=== PATIENT | female | born 1995 | race Caucasian/White ===

== ENCOUNTER 2020-03-10 12:14 | Emergency (ER) | payer MEDICAID, SELFPAY ==
[2020-03-10 12:34] VITALS: BP 136/94; PULSE 112; RESP 18; TEMP 36.7; O2SAT 99; BMI 18.8
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
[2020-03-10 13:42] VITALS: BP 136/94; PULSE 112; RESP 18; TEMP 36.7; O2SAT 99
== END 2020-03-10 13:43 | disposition home or self-care (01) ==
PROVIDERS: Emergency Provider Nurse Practitioner; PCP Pediatrics
DX: S41.112A Laceration without foreign body of left upper arm, initial encounter (principal); W26.8XXA Contact with other sharp object(s), not elsewhere classified, initial encounter; Y92.73 Farm field as the place of occurrence of the external cause; Z23 Encounter for immunization; F17.210 Nicotine dependence, cigarettes, uncomplicated
CPT/HCPCS: 12002; 90471; 90715; 99201

== ENCOUNTER 2020-11-10 19:59 | Emergency (ER) | payer MEDICAID, SELFPAY ==
[2020-11-10 20:00] VITALS: BP 137/95; PULSE 89; RESP 16; TEMP 37.4; O2SAT 95; BMI 21.7
[2020-11-10 20:23] LABS: Microscopic, Urine URINE MICROSCOPIC (MICROSCOPIC)
[2020-11-10 20:28] LABS: Urine Pregnancy, HCG Qual. Positive (Negative)
--- NOTE | 2020-11-10 20:29 | HMH.EDNVD ---
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 The time I documented below is in addition to time spent performing reported procedures but includes the following listed in this critical care notation. Medical Decision Making - Medical Records Medical records reviewed: Yes: I reviewed the patient's medical records. - Bharathi Inquiry Pt receiving controlled substance: No Vital Signs: 11/10/20 20:00 11/10/20 21:06 11/10/20 22:08 Temperature 99.3 F Temperature Source Oral Pulse Rate 79 80 Pulse Rate [Right] 89 Respiratory Rate 16 Blood Pressure 113/76 131/86 Blood Pressure [Right Arm] 137/95 H Blood Pressure Mean [Right Arm] 109 02 Sat by Pulse Oximetry 95 98 98 - Lab Data Lab results reviewed: Yes: I reviewed the patient's lab results. Lab Results 11/10/20 20:06: Urine Color Yellow, Urine Appearance Clear, Urine pH 6.0, Ur Specific Clutier >= 1.030, Urine Protein Negative, Urine Glucose (UA) Negative, Urine Ketones Negative, Urine Blood Negative, Urine Nitrate Negative, Urine Bilirubin Negative, Urine Urobilinogen 0.2, Ur Leukocyte Esterase Negative, Urine RBC None, Urine WBC Occasional, Ur Squamous Epith Cells 3-5, Urine Bacteria Trace 11/10/20 20:06: Urine HCG, Qual Positive 11/10/20 20:25: WBC 7.5, RBC 4.93, Hgb 15.1, Hct 43.6, MCV 88.4, MCH 30.6, MCHC 34.6, RDW 12.9, Plt Count 306, MPV 7.2 L, Neut % (Auto) 58.6, Lymph % (Auto) 33.5, Alger % (Auto) 6.2, Eos % (Auto) 0.8, Baso % (Auto) 0.9, Neut # (Auto) 4.4, Lymph # (Auto) 2.5, Alger # (Auto) 0.5, Eos # (Auto) 0.1, Baso # (Auto) 0.1, ESR 17 11/10/20 20:25: Sodium 139, Potassium 3.8, Chloride 104, Carbon Dioxide 25, Anion Gap 13.8, BUN 10, Creatinine 0.60, Estimated Creat Clear 119, Estimated GFR 123, Est GFR ( Amer) 149, Glucose 66 L, Calcium 9.6, Total Bilirubin 0.5, AST 28, ALT 15, Alkaline Phosphatase 48, C-Reactive Protein 1.1, Total Protein 8.2, Albumin 4.9, Globulin 3.3 H, Albumin/Globulin Ratio 1.5, Amylase 88, Lipase 112, Procalcitonin 0.034 11/10/20 20:25: HCG, Quant 4264 H Result diagrams: 11/10/20 20:25 11/10/20 20:25 Orders (Tests/Meds): ORDERS Category Date Time Status US OB transvaginal Stat Ultrasound 11/10/20 20:35 Taken - US Data US Images: Pelvis ED US Reviewed: Yes: I discussed the US results w/the radiologist Findings Narrative: no def gest sac Medical Decision Narrative: pt has positive preg test and pelvic u/s which showed no def iup - pt left ed with notify staff Nausea/Vomiting/Diarrhea HPI - General Chief complaint: Abdominal Pain Stated complaint: stomach pains positive home test Time Seen by Provider: 11/10/20 20:29 Mode of Arrival: Ambulatory Source of Information: Patient, Relative, Medical Record Limitations: No Limitations Description of Symptoms (Recalled from ER Triage Doc. by RN): pt c/o lower abd pain and tenderness x 3 days. this morning took a home pregnacy test and was positive - History of Present Illness HPI Narrative: lower abd pain over the last few days with positive preg test this am- no fever or vag bleeding MD complaint: abdominal pain Onset (ago): day(s) Associated Abdominal Pain: Yes Location of pain: periumbilical Severity: moderate Consistency: intermittent Associated symptoms: denies other symptoms - R
[2020-11-10 20:34] LABS: Appearance,Urine CLEAR (Clear); Bilirubin,Urine Negative (Negative); Blood, Urine Negative (Negative); Color,Urine YELLOW (Yellow); Glucose,Urine (UA) Negative (Negative); Ketones,Urine Negative (Negative); Leukocyte Esterase,Urine Negative (Negative); Nitrate,Urine Negative (Negative); Protein,Urine Negative (Negative); Specific Gravity, Urine >= 1.030 (1.005-1.030); Urobilinogen,Urine 0.2 EU/dl (0.2); WBC,Urine Occasional #/hpf (0-3)
[2020-11-10 20:34] LABS: Basophils # 0.1 K/mm3 (0-0.2); Basophils % 0.9 % (0.1-2.0); Eosinophils # 0.1 K/mm3 (0.0-0.4); Eosinophils % 0.8 % (0.1-12.0); Hematocrit 43.6 % (37.0-47.0); Hemoglobin 15.1 g/dL (12.2-16.2); Lymphocytes # 2.5 K/mm3 (0.7-4.5); Lymphocytes % 33.5 % (10-50); Mean Corpuscular HGB Conc 34.6 g/dL (31.8-35.4); Mean Corpuscular Hemoglobin 30.6 pg (27.0-31.2); Mean Corpuscular Volume 88.4 fl (81-99); Mean Platelet Volume 7.2 fl (7.4-10.4); Monocytes # 0.5 K/mm3 (0.1-1.0); Monocytes % 6.2 % (1.7-9.3); Neutrophils # 4.4 K/mm3 (1.8-7.8); Neutrophils % 58.6 % (37.0-80.0); Platelet Count 306 K/mm3 (142-424); Red Blood Count 4.93 M/mm3 (4.20-5.40); Red Cell Distribution Width 12.9 % (11.5-17.5); White Blood Count 7.5 K/mm3 (4.8-10.8)
[2020-11-10 20:35] LABS: Bacteria,Urine Trace /lpf
--- NOTE | 2020-11-10 20:35 | US_ITS ---
PROCEDURE INFORMATION: Exam: US , Transvaginal Exam date and time: 11/10/2020 9:37 PM Age: 25 years old Clinical indication: complicated by abdominal or pelvic pain; Other: Bilateral low pelvis pain; Gestational age or lmp: 5 weeks; ; Patient HX: Positive preg test. Beta hcg is 4264. Low pelvis pain no bleeding TECHNIQUE: Imaging protocol: Real-time transvaginal obstetrical ultrasound of the maternal pelvis with image documentation. Transvaginal imaging was used for better evaluation of the fetus, adnexa, and/or cervix. COMPARISON: US OB TRANSVAGINAL 11/10/2020 9:30 PM FINDINGS: Gestation: No gestational sac identified. MATERNAL: Uterus: The uterus measures 7.7 x 4.2 x 6.6 cm and has relatively homogeneous echotexture. The endometrium measures 1.8 cm. Cervix: The cervix is closed. Right adnexa: The right ovary measures 2.3 x 1.5 x 1.7 cm and demonstrates normal Doppler color flow and spectral analysis. There is a thick-walled 2.3 x 1.5 cm hypoechoic cyst within the right ovary. Left adnexa: The left ovary measures 2.3 x 1.2 x 1.8 cm and demonstrates normal Doppler color flow and spectral analysis. There are small follicles in the left ovary. IMPRESSION: 1. No sonographic evidence of a viable intrauterine . Therefore an ectopic is not excluded. Clinical correlation and follow-up with serial beta HCG levels advised. 2. Hypoechoic thick-walled right ovarian cyst. 3. No ovarian torsion.
[2020-11-10 20:44] LABS: Alanine Aminotransferase 15 U/L (12-78); Albumin Level 4.9 g/dl (3.5-5.0); Albumin/Globulin Ratio 1.5 (1.1-1.8); Alkaline Phosphatase 48 U/L (38-126); Amylase 88 U/L (30-110); Anion Gap 13.8 mEq/L (5-15); Aspartate Amino Transferase 28 U/L (14-36); Bilirubin,Total 0.5 mg/dl (0.2-1.3); Blood Urea Nitrogen 10 mg/dl (7-17); Calcium 9.6 mg/dl (8.4-10.2); Carbon Dioxide 25 mmol/L (22.0-30.0); Chloride 104 mmol/L (98-107); Creatinine Clearance Estimated 119 mL/min (50-200); Estimated Glomerular Filt Rate 123 ml/min (>60); GFR (African American) 149 ML/MIN (>60); Globulin 3.3 g/dL (1.3-3.2); Glucose 66 mg/dl (74-100); Lipase 112 U/L (23-300); Potassium 3.8 mmoL/L (3.5-5.1); Sodium 139 mmol/L (136-145); Total Protein,Serum 8.2 g/dl (6.3-8.2)
[2020-11-10 20:51] LABS: C-Reactive Protein 1.1 mg/L (0-4)
[2020-11-10 21:04] LABS: HCG,Quantitative 4264 mIU/ml (0-5.42); Procalcitonin 0.034 ng/mL (0.0-2.0)
[2020-11-10 21:05] LABS: Erythrocyte Sedimentation Rate 17 mm/hr (0-20)
[2020-11-10 21:06] VITALS: BP 113/76; PULSE 79; O2SAT 98
--- NOTE | 2020-11-10 21:29 | PC.NURSE ---
pt gone to radiology.
--- NOTE | 2020-11-10 22:02 | PC.NURSE ---
pt back in room from radiology.
[2020-11-10 22:08] VITALS: BP 131/86; PULSE 80; O2SAT 98
[2020-11-10 22:56] VITALS: BP 131/91; PULSE 89; O2SAT 99
--- NOTE | 2020-11-10 23:13 | PC.NURSE ---
This RN noticed pt walking to exit with visitor. When this RN asked if pt had been d/c the MD stated she was not yet. Staff attempted to find pt in parking lot and attempted to call pt on listed cell phone number with no success. Dispatch was notified d/t pt leaving with IV access.
--- NOTE | 2020-11-10 23:18 | PC.NURSE ---
IV had been removed by another RN prior to pt leaving without informing staff. Dispatch contacted and made aware.
[2020-11-10 23:20] VITALS: BP 131/91; PULSE 88; RESP 16; TEMP 37.4; O2SAT 99
--- NOTE | 2020-11-11 06:39 | PC.NURSE ---
This RN spoke with Pt over the phone at 0635 about needing to schedule appointment with OBGYN in regards to US reading to rule out ectopic . This RN explained risks of having ectopic . Pt verbalized understanding and states she will contact her obgyn she used when she had her son.
== END 2020-11-10 23:22 | disposition left against medical advice (07) ==
PROVIDERS: Emergency Provider Emergency Medicine; PCP Pediatrics
DX: R10.30 Lower abdominal pain, unspecified (principal); Z3A.01 Less than 8 weeks gestation of pregnancy; F17.210 Nicotine dependence, cigarettes, uncomplicated
CPT/HCPCS: 76817; 80053; 81001; 81025; 82150; 83690; 84145; 84702; 85025; 85651; 86140; 99283

== ENCOUNTER 2023-06-23 14:57 | Emergency (ER) | payer MEDICAID, SELFPAY ==
[2023-06-23 15:00] VITALS: BP 160/106; PULSE 108; RESP 22; TEMP 36.8; O2SAT 98; BMI 18.8
--- NOTE | 2023-06-23 15:14 | EXP.UTC ---
Discharge Plan Disposition Patient Disposition: Still a Patient Condition: Good Prescriptions Prescriptions: No Action nifedipine 30 mg tablet extended release 24hr 30 mg PO DAILY buspirone 10 mg tablet 10 mg PO DAILY Patient Comments: TAKE 1 TABLET BY MOUTH TWICE A DAY hydroxyzine pamoate 25 mg capsule 25 mg PO DAILY Vitamin 27 mg iron- 800 mcg tablet 1 tab PO DAILY Referrals Follow up/Referrals: Provider,Referral, [Primary Care Provider] - See instructions Discharge ED Provider: Carolyn Dong [facility] [place] HPI General Stated complaint: spotting 6 weeks preg Mode of Arrival: Ambulatory Source of Information: Patient Limitations: No Limitations Time Seen by Provider: 06/23/23 15:14 Description of Symptoms (Recalled from Triage Doc. by RN): PATIENT REPORTS A POSITIVE URINE TEST LAST SUNDAY. SHE STATES THAT APPROX 2 HOURS TOP ICER SHE STARTED HAVING CRAMPING AND SPOTTING. SHE STATES SHE BELIEVES SHE IS APPROX 6 WEEKS . SHE HAS NOT HAD AN INITIAL OB APPOINTMENT SINCE POSITIVE TEST HEENT Symptoms (Recalled from RN notes): No Resp Symptoms (Recalled from RN notes): No Skin Symptoms (Recalled from RN notes): No MS Symptoms (Recalled from RN notes): No Functional Status (Recalled from RN notes): WNL History of Present Illness Provider Complaint: Patient states that she had a positive home test last week and hasnt seen OBGYN yet figures that she is about 6wks OB states that about 2hrs ago she started cramping and went to the bathroom and noticed she had some blood on the tissue Stats that she has anxiety, hx of preeclampsia and high blood pressure States that she called the OBGYN human resources operations director in [place] and they told her that she needed to come in and get checked so she came to the [facility] Related Data Home Medications Medication Instructions Recorded Confirmed buspirone 10 mg tablet 10 mg PO DAILY 06/23/23 06/23/23 hydroxyzine pamoate 25 mg capsule 25 mg PO DAILY 06/23/23 06/23/23 nifedipine 30 mg tablet,extended 30 mg PO DAILY 06/23/23 06/23/23 release 24 hr vits no.130-ferrous fum 1 tab PO DAILY 06/23/23 06/23/23 27 mg iron-folic acid 800 mcg tablet ( Vitamin) Allergies Allergy/AdvReac Type Severity Reaction Status Date / Time No Known Allergies Allergy Verified 06/23/23 15:09 Worker's Comp Is this a Worker's Comp case?: No [facility] Disclaimer: The information contained in this section may have been updated after the patient was seen, as this information can be updated by other users. Social History Smoking Status: Current every day smoker tobacco type: cigarettes packs per day: 1 second hand exposure: Yes alcohol intake: never current occupational status: unemployed Travel in the last 8 weeks: None ROS Obtained: Yes All systems reviewed & no additional complaints except as documented and Yes Systems reviewed as appropriate & no additional complaints except as documented ENT Ears, Nose, Mouth, and Throat: Reports system reviewed and no additional complaints, except as documented and Reports as per HPI Cardiovascular Cardiovascular: Reports system reviewed and no additional complaints, except as documented and Reports as per HPI Respiratory Respiratory: Reports system reviewed and no additional complaints, except as documented and Reports as per HPI Gastrointestinal Gastrointestingal: Reports system reviewed and no additional complaints, except as documented, as per HPI and cramping Genitourinary Female Genitourinary: Reports system reviewed and no additional complaints, except as documented, Reports as per HPI and Reports other (spotting with + urine ) Physical Exam General General appearance: alert and in no apparent distress Respiratory Respiratory exam: Present normal lung sounds bilaterally; Absent respiratory distress or wheezes Cardiovascular Cardiovascular exam: Present regular rate, normal rhythm and tachycardia Neurological Exam Neurological exam: Present alert and oriented X3 Medical Decision Making Bharathi Inquiry Pt receiving controlled substance: No Bharathi was queried for this patient: No Vital Signs: 06/23/23 15:00 Temperature 98.3 F Temperature Source Oral Pulse Rate [Left Brachial] 108 H Respiratory Rate 22 Blood Pressure [Left Arm] 160/106 H Blood Pressure Mean [Left Arm] 124 Blood Pressure Source [Left Arm] Automatic Cuff Blood Pressure Position [Left Arm] Sitting 02 Sat by Pulse Oximetry 98 Oxygen Delivery Method Room Air Lab Data Lab results reviewed: Yes I reviewed the patient's lab results. Medical Decision Narrative: Discussed with patient that due to positive urine test with spotting and cramping and elevated BP, it was recommended that she be transferred to the ED for further evaluation and testing and patient agreed Called ED and patient was moved to the ED for further evaluation and treatment
[2023-06-23 15:18] LABS: Apearance,Urine Clear (Clear); Bilirubin,Urine Negative (Negative); Blood, Urine 3+ (Negative); Color,Urine Yellow (Yellow); Glucose,Urine (UA) Negative (Negative); Ketones,Urine Negative (Negative); Protein,Urine Negative (Negative); UTC Leukocyte Esterase,Urine Negative (Negative); UTC Nitrate,Urine Negative (Negative); Urobilinogen,Urine 0.2 EU/dl (0.2)
[2023-06-23 15:18] LABS: UTC Pregnancy Test, Urine Positive (Negative)
--- NOTE | 2023-06-23 15:22 | PC.NURSE ---
PATIENT SENT TO ER PER Yifan LAMAR APRN FOR FURTHER EVALUATION. REPORT GIVEN TO DR. BRAVO BY Yifan LAMAR APRN. PATIENT AMBULATED TO ER WITH [facility] STAFF. FAMILY AT BEDSIDE
[2023-06-23 15:28] VITALS: BP 154/91; PULSE 90; RESP 20; TEMP 36.9; O2SAT 99; BMI 18.4
--- NOTE | 2023-06-23 15:31 | US_ITS ---
PROCEDURE INFORMATION: Exam: US Pelvis, Transvaginal Exam date and time: 06/23/2023 4:13 PM Age: 28 years old Clinical indication: Other: Vaginal bleeding; Additional info: vaginal bleeding TECHNIQUE: Imaging protocol: Real-time transvaginal pelvic ultrasound with image documentation. Transvaginal imaging was used for better evaluation of the endometrium, adnexa, and/or cervix. COMPARISON: US OB TRANSVAGINAL 11/10/2020 9:37 PM FINDINGS: Uterus: Uterus is normal. Endometrial stripe is normal. Right ovary/adnexa: Right ovary normal size measuring 2.1 x 1.1 x 0.9 cm with blood flow noted. Right ovary contains a cyst measuring 1.1 cm. Left ovary/adnexa: Left ovary measures 2.4 x 1.8 x 1.6 cm with blood flow. Left ovary contains a thick-walled lesion with a internal 8 mm cystic component with a eccentric solid-appearing component along the posterior portion of the cystic portion. Prominent peripheral blood flow around this lesion noted. Gestation: Evidence for a intrauterine gestational sac with possible yolk sac present. No pole or heart activity identified. Mean sac diameter 0.81 cm corresponding to ultrasound age of 5 weeks 3 days. Intraperitoneal space: No free fluid. Other findings: Complex hypoechoic material anterior to the gestational sac measuring 2.4 x 0.3 x 2.2 cm compatible with subchorionic hemorrhage. IMPRESSION: 1. Evidence for IUP with ultrasound age based on mean sac diameter 5 weeks and 3 days with corresponding BLESSING 02/20/2024. Size and dates are not concordant. Live IUP can not be confirmed at this time. 2. Associated moderate to large size subchorionic hemorrhage. 3. Complex 16 mm cystic lesion in the left ovary with a 8 mm central component that also demonstrates internal solid component in pronounced peripheral blood flow. A complex corpus luteum cyst is favored.. The remote possibility this might reflect a coexistent ectopic associated with the intrauterine while thought unlikely not entirely excluded. For this reason consider correlation with serial hCGs and short-term follow-up ultrasound in roughly 2-3 weeks to reassess this area to assess for improvement or progression.
[2023-06-23 15:40] LABS: Chloride 104 mmol/L (98-107)
[2023-06-23 15:41] LABS: Potassium 3.3 mmoL/L (3.5-5.1); Sodium 138 mmol/L (136-145)
[2023-06-23 15:42] LABS: Basophils % 0.7 % (0.1-2.0); Eosinophils % 0.5 % (0.1-12.0); Hematocrit 43.8 % (37.0-47.0); Hemoglobin 15.5 g/dL (12.2-16.2); Lymphocytes # 2.1 K/mm3 (0.7-4.5); Lymphocytes % 32.6 % (10-50); Mean Corpuscular HGB Conc 35.5 g/dL (31.8-35.4); Mean Corpuscular Hemoglobin 31.4 pg (27.0-31.2); Mean Corpuscular Volume 88.4 fl (81-99); Mean Platelet Volume 7.9 fl (7.4-10.4); Monocytes # 0.4 K/mm3 (0.1-1.0); Neutrophils # 3.7 K/mm3 (1.8-7.8); Neutrophils % 59.2 % (37.0-80.0); Platelet Count 284 K/mm3 (142-424); Red Blood Count 4.95 M/mm3 (4.20-5.40); Red Cell Distribution Width 13.3 % (11.5-17.5); White Blood Count 6.3 K/mm3 (4.8-10.8)
[2023-06-23 15:43] LABS: Alanine Aminotransferase 29 U/L (12-78); Albumin Level 4.9 g/dl (3.5-5.0); Alkaline Phosphatase 40 U/L (38-126); Aspartate Amino Transferase 37 U/L (14-36); Blood Urea Nitrogen 10 mg/dl (7-17); Creatinine Clearance Estimated 109 mL/min (50-200); Estimated Glomerular Filt Rate 120 ml/min (>60); GFR (African American) 145 ML/MIN (>60)
[2023-06-23 15:44] LABS: Albumin/Globulin Ratio 1.4 (1.1-1.8); Anion Gap 12.3 mEq/L (5-15); Calcium 9.3 mg/dl (8.4-10.2); Carbon Dioxide 25 mmol/L (22.0-30.0); Globulin 3.5 g/dL (1.3-3.2); Glucose 95 mg/dl (74-100); Total Protein,Serum 8.4 g/dl (6.3-8.2)
[2023-06-23 15:46] VITALS: BP 155/102; PULSE 100; O2SAT 98
[2023-06-23 16:00] VITALS: BP 152/100; PULSE 104; O2SAT 97
[2023-06-23 16:01] LABS: HCG,Quantitative 11850 mIU/ml (0-5.42)
--- NOTE | 2023-06-23 16:02 | PC.NURSE ---
PT IS CHANGING INTO [facility] FOR TRANSVAGINAL ULTRASOUND
--- NOTE | 2023-06-23 16:05 | HMH.EDGENADL ---
Discharge Plan Disposition Patient Disposition: Home, Self-Care Condition: Good Prescriptions Prescriptions: No Action nifedipine 30 mg tablet extended release 24hr 30 mg PO DAILY buspirone 10 mg tablet 10 mg PO DAILY Patient Comments: TAKE 1 TABLET BY MOUTH TWICE A DAY hydroxyzine pamoate 25 mg capsule 25 mg PO DAILY Vitamin 27 mg iron- 800 mcg tablet 1 tab PO DAILY Referrals Follow up/Referrals: Provider,Referral, MD [Primary Care Provider] - See instructions Activity Restrictions/Add. Instructions Additional Instructions/Restrictions: Call your family doctor to establish care for this visit to the emergency department and schedule follow-up within 48 hours to ensure improvement. If you have any worsening of your condition or any other concerning signs or symptoms, return to the emergency department or your primary care doctor for further evaluation. Clinical Impressions Clinical Impression: Vaginal bleeding affecting early Discharge ED Provider: Wilfrid Gonzalez General Adult HPI General Chief complaint: Vaginal Bleeding Stated complaint: spotting 6 weeks preg Time Seen by Provider: 06/23/23 15:14 Mode of Arrival: Ambulatory Limitations: No Limitations Description of Symptoms (Recalled from ER Triage Doc. by RN): cramping and spotting. thinks shes 6 weeks . history of preeclampsia postpartumx2 History of Present Illness HPI narrative: 28-year-old female approximately 6 weeks G4, P2 presenting with abdominal cramping, vaginal bleeding, hypertension. Patient states that she has anxiety when coming to the emergency department or hospital, so her blood pressure and heart rate are up because of that. She states that before she came to the emergency department, her blood pressure was 120/60 and was totally normal. She is currently taking labetalol and nifedipine. Abdominal cramping is not present on arrival. She states it was lower pelvic, associated with vaginal versus urinary bleeding. Denies dysuria, frequency or urgency. Not currently having abdominal cramping. Denies fevers or chills, gushes of fluid, or any other concerns. Last menstrual period was May 21, 2023. Related Data Home Medications Medication Instructions Recorded Confirmed buspirone 10 mg tablet 10 mg PO DAILY 06/23/23 06/23/23 hydroxyzine pamoate 25 mg capsule 25 mg PO DAILY 06/23/23 06/23/23 nifedipine 30 mg tablet,extended 30 mg PO DAILY 06/23/23 06/23/23 release 24 hr vits no.130-ferrous fum 1 tab PO DAILY 06/23/23 06/23/23 27 mg iron-folic acid 800 mcg tablet ( Vitamin) Allergies Allergy/AdvReac Type Severity Reaction Status Date / Time No Known Allergies Allergy Verified 06/23/23 15:09 [facility] Disclaimer: The information contained in this section may have been updated after the patient was seen, as this information can be updated by other users. Social History Smoking Status: Current every day smoker tobacco type: cigarettes packs per day: 1 second hand exposure: Yes alcohol intake: never current occupational status: unemployed Travel in the last 8 weeks: None ROS Obtained: Yes All systems reviewed & no additional complaints except as documented Physical Exam General General appearance: alert, in no apparent distress and anxious (Tearful) Head Head exam: atraumatic and normocephalic Eye Eye exam: Present normal appearance, PERRL and EOMI ENT ENT exam: Present mucous membranes moist Neck Neck exam: Present normal inspection, full ROM and trachea midline Respiratory Respiratory exam: Absent respiratory distress, wheezes, stridor, accessory muscle use or prolonged expiratory phase Cardiovascular Cardiovascular exam: Present normal rhythm Abdominal Exam Abdominal exam: Present soft; Absent distention, tenderness, guarding, rebound or rigidity Extremities Exam Extremities exam: Absent edema Neurological Exam Neurological exam: Present alert, oriented X3, CN II-XII intact and normal gait; Absent motor sensory deficit Skin Skin exam: Present warm and dry; Absent diaphoresis or erythema Medical Decision Making Medical Records Medical records reviewed: Yes I reviewed the patient's medical records. Bharathi Inquiry Pt receiving controlled substance: No Bharathi was queried for this patient: No Vital Signs: 06/23/23 15:00 06/23/23 15:28 06/23/23 16:10 Temperature 98.3 F 98.4 F Temperature Source Oral Oral Pulse Rate Pulse Rate [Left Brachial] 108 H 90 Respiratory Rate 22 20 Blood Pressure 154/100 H Blood Pressure [Left Arm] 160/106 H 154/91 H Blood Pressure Mean [Left Arm] 124 112 Blood Pressure Source [Left Arm] Automatic Cuff Blood Pressure Position [Left Arm] Sitting 02 Sat by Pulse Oximetry 98 99 Oxygen Delivery Method Room Air Room Air 06/23/23 15:46 06/23/23 16:00 Temperature Temperature Source Pulse Rate 100 H 104 H Pulse Rate [Left Brachial] Respiratory Rate Blood Pressure 155/102 H 152/100 H Blood Pressure [Left Arm] Blood Pressure Mean [Left Arm] Blood Pressure Source [Left Arm] Blood Pressure Position [Left Arm] 02 Sat by Pulse Oximetry 98 97 Oxygen Delivery Method Room Air Room Air Lab Data Lab Results 06/23/23 15:16: [facility] Positive 06/23/23 15:17: Urine Color Yellow, Urine Appearance Clear, Urine pH 6.0, Ur Specific [place] 1.010, Urine Protein Negative, Urine Glucose (UA) Negative, Urine Ketones Negative, Urine Blood 3+, Urine Nitrate Negative, Urine Bilirubin Negative, Urine Urobilinogen 0.2, Ur Leukocyte Esterase Negative 06/23/23 15:23: WBC 6.3, RBC 4.95, Hgb 15.5, Hct 43.8, MCV 88.4, MCH 31.4 H, MCHC 35.5 H, RDW 13.3, Plt Count 284, MPV 7.9, Neut % (Auto) 59.2, Lymph % (Auto) 32.6, [place] % (Auto) 7.0, Eos % (Auto) 0.5, Baso % (Auto) 0.7, Neut # (Auto) 3.7, Lymph # (Auto) 2.1, [place] # (Auto) 0.4, Eos # (Auto) 0.0, Baso # (Auto) 0.0, Sodium 138, Potassium 3.3 L, Chloride 104, Carbon Dioxide 25, Anion Gap 12.3, BUN 10, Creatinine 0.60, Estimated Creat Clear 109, Estimated GFR 120, Est GFR ( Amer) 145, Glucose 95, Calcium 9.3, Total Bilirubin 1.0, AST 37 H, ALT 29, Alkaline Phosphatase 40, Total Protein 8.4 H, Albumin 4.9, Globulin 3.5 H, Albumin/Globulin Ratio 1.4, HCG, Quant [id number] H 06/23/23 15:23 06/23/23 15:23 Orders (Tests/Meds): ED MEDICATIONS Discontinued Medications Generic Name Dose Route Start Last Admin Trade Name Freq PRN Reason Stop Dose Admin Magnesium Sulfate 2 gm in 50 mls @ 50 mls/hr 06/23/23 15:32 06/23/23 16:11 Magnesium Sulfate 2gm/50ml Premix IV 06/23/23 16:31 50 mls/hr ONCE ONE Administration Labetalol HCl 10 mg 06/23/23 15:31 06/23/23 16:02 Labetalol 5mg/Ml 20ml Mdv IV 06/23/23 15:32 Not Given ONCE ONE Labetalol HCl 10 mg 06/23/23 16:01 06/23/23 16:10 Labetalol 20mg/4ml Syringe IV 06/23/23 16:02 10 mg ONCE ONE Administration ORDERS Category Date Time Status US transvaginal Stat Exams 06/23/23 15:31 Taken CBC w/Auto Diff [Complete Blood Count Auto Diff] Stat Lab 06/23/23 15:23 Completed CMP [Comprehensive Metabolic Panel] Stat Lab 06/23/23 15:23 Completed HCG,Quantitative Stat Lab 06/23/23 15:23 Completed Urine Culture Stat Micro 06/23/23 15:15 Received Medical Decision Narrative: 28-year-old female approximately 6 weeks G4, P2 presenting with abdominal cramping, vaginal bleeding, hypertension. Patient states that she has anxiety when coming to the emergency department or hospital, so her blood pressure and heart rate are up because of that. She states that before she came to the emergency department, her blood pressure was 120/60 and was totally normal. She is currently taking labetalol and nifedipine. Abdominal cramping is not present on arrival. She states it was lower pelvic, associated with vaginal versus urinary bleeding. Denies dysuria, frequency or urgency. Not currently having abdominal cramping. Denies fevers or chills, gushes of fluid, or any other concerns. Last menstrual period was May 21, 2023. History was obtained via conversation with patient. On arrival, patient hemodynamically stable, alert, oriented x4, appropriate, GCS 15, moving all extremities spontaneously, pupils equal and reactive to light. Full physical exam performed and significant for other relevant findings/NIHSS. Differential includes miscarriage, molar , subchorionic hemorrhage, placenta versus vasa previa, abruption, among others. Patient was given labetalol for symptomatic management and correction of underlying abnormalities. Workup independently interpreted and significant for nonactionable CBC or chemistry. hCG 11,800. Urinalysis without concern for UTI. Obstetric ultrasound with subchorionic hemorrhage. See radiology read for full review of final results. On reevaluation, patient resting comfortably bed. Given patient presentation, workup, history, this most likely represents chronic hypertension, subchorionic hemorrhage and vaginal spotting. Because patient at baseline without signs or symptoms of clinical decompensation, deemed appropriate for discharge. Results were relayed to patient who voiced understanding and were agreeable to outpatient management and follow up. At the time of discharge the patient was hemodynamically stable, tolerating PO, and mobilizing appropriately. Critical Care Critical Care Time Critical Care Time: No
[2023-06-23 16:10] VITALS: BP 154/100
[2023-06-23] MEDS: LABETALOL 20MG/4ML SYRINGE 10 MG IV (16:10)
--- NOTE | 2023-06-23 16:10 | PC.NURSE ---
PT GONE TO ULTRASOUND
[2023-06-23] MEDS: MAGNESIUM SULFATE IN WATER 2 GM/50 ML PIGGYBACK IV (16:11)
--- NOTE | 2023-06-23 16:49 | PC.NURSE ---
PT ARRIVED BACK TO ROOM
[2023-06-23 17:45] VITALS: BP 151/99; PULSE 101; RESP 16; TEMP 36.9; O2SAT 97
== END 2023-06-23 17:46 | disposition home or self-care (01) ==
LOC: UTC 15:22 → ER 15:23
PROVIDERS: Nurse Practitioner; Emergency Provider Emergency Medicine
DX: O26.851 Spotting complicating pregnancy, first trimester (principal); O26.891 Other specified pregnancy related conditions, first trimester; O16.1 Unspecified maternal hypertension, first trimester; O99.331 Smoking (tobacco) complicating pregnancy, first trimester; R10.9 Unspecified abdominal pain; F17.210 Nicotine dependence, cigarettes, uncomplicated; Z3A.01 Less than 8 weeks gestation of pregnancy
CPT/HCPCS: 76830; 80053; 81003; 81025; 84702; 85025; 87086; 96365; 96375; 99285; J3475